=== PATIENT | male | born 1970 | race African-American/Black ===

== ENCOUNTER 2021-11-12 00:26 | Emergency (ER) | payer OTHER ==
[~2021-11-12] VITALS: Ht 182.9 cm; Wt 83.9 kg
[2021-11-12] MEDS ORDERED: CHLORDIAZEPOXIDE HCL 25 MG CAPSULE PO ONE (00:45)
[2021-11-12] MEDS ORDERED: THIAMINE HCL 100 MG TABLET PO ONE (00:45)
[2021-11-12] MEDS ORDERED: MAGNESIUM SULFATE/D5W 100 ML IV SCH (00:45)
[2021-11-12] MEDS ORDERED: LORAZEPAM 2 MG/1 ML VIAL IV ONE (00:45)
[2021-11-12] MEDS ORDERED: MAGNESIUM SULFATE/D5W 200 ML ONE (00:52)
[2021-11-12] MEDS ORDERED: LORAZEPAM 2 MG/1 ML VIAL ONE (00:52)
[2021-11-12] MEDS ORDERED: CHLORDIAZEPOXIDE HCL 25 MG CAPSULE ONE (00:53)
[2021-11-12] MEDS ORDERED: THIAMINE HCL 100 MG TABLET ONE (00:53)
[2021-11-12 01:23] LABS: HEMATOCRIT 39.8 % (36.7-47.1); MEAN CORPUSCULAR HEMOGLOBIN 35.1 uug (23.8-33.4); MEAN CORPUSCULAR VOLUME 98.7 fL (73.0-96.2); PLATELET COUNT (AUTO) 273 K/uL (152-348)
[2021-11-12 01:26] LABS: CREATININE 1.3 mg/dL (0.6-1.3); POTASSIUM 3.7 mmol/L (3.5-5.1)
[2021-11-12 01:31] LABS: BILIRUBIN,DIRECT 0.3 mg/dL (0.0-0.2); BILIRUBIN,TOTAL 1.1 mg/dL (0.2-1.0); TOTAL PROTEIN, SERUM 7.4 g/dL (6.4-8.2)
[2021-11-12] MEDS ORDERED: CHLO25CA22 PO (01:52)
--- NOTE | 2021-11-12 02:07 | NUR ---
Patient discharged to home in stable condition. Written and verbal after care instructions given. Patient verbalizes understanding of instructions. Stressed follow up or return to ER for worsening s/s. Patient out of ER with steady gait, no acute signs of distress, VSS, all belongings taken, IV site discontinued, provided with copies of labs, to be driven home by girlfriend via private vehicle.
[2021-11-12 02:08] VITALS: BP 125/77
== END 2021-11-12 02:08 | disposition home or self-care (01) ==
LOC: ER 00:33
DX: F10.139 Alcohol abuse with withdrawal, unspecified (principal); F13.139 Sedative, hypnotic or anxiolytic abuse with withdrawal, unspecified; G40.89 Other seizures; K70.9 Alcoholic liver disease, unspecified; I10 Essential (primary) hypertension
CPT/HCPCS: 36415; 80048; 80076; 83735; 85025; 96365; 96375; 99284; J2060; J3475; A4663

== ENCOUNTER 2021-12-21 18:53 | Emergency (ER) | payer OTHER ==
[~2021-12-21] VITALS: Ht 182.9 cm; Wt 79.4 kg
[~2021-12-21 18:53] MED LIST: CHLO25CA22 PO
[2021-12-21 19:47] LABS: HEMATOCRIT 42.9 % (36.7-47.1); MEAN CORPUSCULAR HEMOGLOBIN 34.5 uug (23.8-33.4); MEAN CORPUSCULAR VOLUME 99.3 fL (73.0-96.2); PLATELET COUNT (AUTO) 245 K/uL (152-348)
[2021-12-21 20:05] LABS: CREATININE 0.8 mg/dL (0.6-1.3); POTASSIUM 3.4 mmol/L (3.5-5.1)
--- NOTE | 2021-12-21 20:11 | NUR ---
PT IS IN ROOM #2B. DR CAAL EVALUATED THE PT.
[2021-12-21 20:18] LABS: BILIRUBIN,DIRECT 0.4 mg/dL (0.0-0.2); BILIRUBIN,TOTAL 1.2 mg/dL (0.2-1.0); TOTAL PROTEIN, SERUM 7.6 g/dL (6.4-8.2)
[2021-12-21] MEDS ORDERED: IV NS 1000 ML 1,000 ML IV ONE (22:00)
[2021-12-21] MEDS ORDERED: CHLO25CA22 PO ×2 (23:31→23:35)
[2021-12-21] MEDS ORDERED: CHLORDIAZEPOXIDE HCL 25 MG CAPSULE PO ONE (23:45)
[2021-12-21] MEDS ORDERED: HYDR-3980 PO (23:50)
[2021-12-22] MEDS ORDERED: CHLORDIAZEPOXIDE HCL 25 MG CAPSULE ONE
--- NOTE | 2021-12-22 00:10 | NUR ---
Patient discharged to home in stable condition. Written and verbal after care instructions given. Patient verbalizes understanding of instructions. Stressed follow up or return to ER for worsening s/s.
[2021-12-22 00:11] VITALS: BP 120/82
== END 2021-12-22 00:12 | disposition home or self-care (01) ==
LOC: ER 18:55
DX: F10.239 Alcohol dependence with withdrawal, unspecified (principal); Y90.0 Blood alcohol level of less than 20 mg/100 ml; M62.82 Rhabdomyolysis
CPT/HCPCS: 80076; 80048; 82550; 85025; 36415; 99284; 96360; 80320; J7040; A4663; G0480

== ENCOUNTER 2022-06-14 21:43 | Emergency (ER) | payer OTHER ==
[~2022-06-14] VITALS: Ht 182.9 cm; Wt 79.4 kg
[2022-06-15] MEDS ORDERED: THIAMINE HCL 100 MG TABLET PO ONE (01:30)
[2022-06-15] MEDS ORDERED: CHLORDIAZEPOXIDE HCL 25 MG CAPSULE PO ONE ×2 (01:30→04:30)
[2022-06-15] MEDS ORDERED: THIAMINE HCL 100 MG TABLET ONE (01:33)
[2022-06-15] MEDS ORDERED: CHLORDIAZEPOXIDE HCL 25 MG CAPSULE ONE ×2 (01:33→06:01)
[2022-06-15 01:51] LABS: HEMATOCRIT 38.9 % (36.7-47.1); MEAN CORPUSCULAR HEMOGLOBIN 33.9 uug (23.8-33.4); MEAN CORPUSCULAR VOLUME 98.2 fL (73.0-96.2); PLATELET COUNT (AUTO) 152 K/uL (152-348)
[2022-06-15 02:05] LABS: BILIRUBIN,DIRECT 0.3 mg/dL (0.0-0.2); BILIRUBIN,TOTAL 1.1 mg/dL (0.2-1.0); POTASSIUM 3.4 mmol/L (3.5-5.1)
--- NOTE | 2022-06-15 02:09 | NUR ---
Dr. Morejon at bedside. MSE in progress.
[2022-06-15] MEDS ORDERED: LORAZEPAM 0.5 MG TABLET PO ONE (02:30)
[2022-06-15] MEDS ORDERED: LORAZEPAM 1 MG TABLET ONE (02:37)
[2022-06-15] MEDS ORDERED: IV NS 1000 ML 1,000 ML IV ONE (03:00)
[2022-06-15] MEDS ORDERED: POTASSIUM BICARBONATE/CIT AC 25 MEQ TABLET.EFF PO ONE (03:00)
[2022-06-15] MEDS ORDERED: POTASSIUM BICARBONATE/CIT AC 25 MEQ TABLET.EFF ONE (03:09)
[2022-06-15] MEDS ORDERED: MAGNESIUM SULFATE/D5W 300 ML ONE (03:11)
[2022-06-15] MEDS: MAGNESIUM SULFATE/D5W 100 ML IV SCH ×3 (03:35→05:32)
[2022-06-15] MEDS ORDERED: CHLO25CA22 PO (04:38)
--- NOTE | 2022-06-15 05:52 | NUR ---
URINE SPECIMEN DROPPED OF TO LAB.
[2022-06-15 06:21] LABS: *BILIRUBIN,URIN NEGATIVE (NEGATIVE); *BLOOD, URINE NEGATIVE (NEGATIVE); *CLARITY,URINE CLEAR (CLEAR); *COLOR,URINE LIGHT YELLOW (YELLOW); *KETONES,URINE NEGATIVE (NEGATIVE); LEUKOCYTE ESTERASE ,URINE NEGATIVE (NEGATIVE); NITRITE, URINE NEGATIVE (NEGATIVE); UGLUCOSE NEGATIVE (NEGATIVE)
[2022-06-15 06:42] LABS: *AMPHETAMINE, URINE NEGATIVE (NEGATIVE); *CANNABINOID, URINE NEGATIVE (NEGATIVE); *COCCAINE, URINE NEGATIVE (NEGATIVE); *PHENCYCLIDINE SCREEN,URINE NEGATIVE (NEGATIVE)
--- NOTE | 2022-06-15 07:10 | NUR ---
Patient discharged to home in stable condition. A/O x 4. NAD noted. All belonings with patient. Written and verbal after care instructions given. Patient verbalizes understanding of instructions. Stressed follow up or return to ER for worsening s/s.
--- NOTE | 2022-06-15 07:10 | NUR ---
Patient given list of available shelters in surrounding area, medication assistance program info., tap card, and AA program info.
[2022-06-15 07:15] VITALS: BP 148/92
== END 2022-06-15 07:11 | disposition home or self-care (01) ==
LOC: ER 21:43
DX: F10.139 Alcohol abuse with withdrawal, unspecified (principal); Y90.0 Blood alcohol level of less than 20 mg/100 ml; R74.01 Elevation of levels of liver transaminase levels; Z59.00 Homelessness unspecified; E78.00 Pure hypercholesterolemia, unspecified; E87.6 Hypokalemia
CPT/HCPCS: 80076; 80048; 81003; 83735; 85025; 36415; 99284; 96365; 96366; 80320; 80307; J3475; J7040; A4663; G0480